=== PATIENT | female | born 1995 | race Caucasian/White ===

== ENCOUNTER → 2022-07-29 14:43 | Outpatient (CLI) | payer OTHER, SELFPAY | PROVIDERS: Visit Provider Nurse Practitioner Psychiatric/Mental Health | DX: Z34.90 Encounter for supervision of normal pregnancy, unspecified, unspecified trimester (principal) | CPT/HCPCS: 36415; 84702 ==

== ENCOUNTER → 2022-07-31 07:21 | Outpatient (CLI) | payer OTHER, SELFPAY ==
[2022-08-01 14:22] LABS: Progesterone 2.7 ng/mL (.)
== END ==
PROVIDERS: Visit Provider Obstetrics & Gynecology
DX: Z34.91 Encounter for supervision of normal pregnancy, unspecified, first trimester (principal)
CPT/HCPCS: 36415; 84144; 84702

== ENCOUNTER 2022-08-15 09:53 | Emergency (ER) | payer OTHER, SELFPAY ==
[2022-08-15] VITALS (16 sets, daily range): BP systolic 190–283; BP diastolic 95–182; PULSE 80–127; RESP 17–18; TEMP 36.8–37; O2SAT 96–100; BMI 58.8
--- NOTE | 2022-08-15 10:10 | PC.NURSE ---
DR CARIAS AT BEDSIDE
--- NOTE | 2022-08-15 10:17 | US_ITS ---
PROCEDURE: US OB TRANSVAGINAL CLINICAL INDICATION: hypertension, elevated HCG, no IUP COMPARISON: No exams were available for comparison FINDINGS: From her last menstrual period she is 11weeks 6days. An intrauterine gestational sac is present correlating to gestational age of 7weeks 4days. There is no fetus seen within gestational sac. The gestational sac seems somewhat collapsed. There is some fluid around the outside of the sac. The right ovary is seen and appears normal. It has a polycystic appearance with typical ring of pearls. The left ovary is seen and appears normal. This ovary also have a polycystic appearance with a typical ring of pearls. There is no fluid in the cul-de-sac. IMPRESSION: 1. Gestational sac measuring approximately 7 weeks 4 days. 2. There is no fetus seen within the gestational sac. 3. Likely a blighted ovum. 4. Both ovaries are seen and have a polycystic appearance. 5. There is no fluid in the cul-de-sac. Dictated by: Tao Saavedra MD 08/15/2022 12:02 Tao Saavedra MD in OV 08/15/2022 12:02
--- NOTE | 2022-08-15 10:19 | HMH.EDGENADL ---
Discharge Plan Disposition Patient Disposition: Home, Self-Care Condition: Good Prescriptions Prescriptions: New hydrochlorothiazide 25 mg tablet 25 mg PO DAILY Qty: 30 1RF No Action progesterone micronized [Prometrium] 200 mg capsule 200 mg PO HS Qty: 30 1RF Referrals Follow up/Referrals: Provider,Referral, [Primary Care Provider] - See instructions Clinical Impressions Clinical Impression: Hypertension Qualifiers: Hypertension type: unspecified Qualified Code(s): I10 - Essential (primary) hypertension Discharge ED Provider: Temo Metzger General Adult HPI General Chief complaint: Recheck/Abnormal Lab/Rx Stated complaint: hypertension Time Seen by Provider: 08/15/22 09:57 Mode of Arrival: Ambulatory Source of Information: Patient Limitations: No Limitations History of Present Illness HPI narrative: This is a 27-year-old female with history of hypertension, obesity, recent positive beta hCG presenting with hypertension. Patient states that she had a positive hCG a couple of weeks ago, first OB appointment was today, 08/15. Patient was seen in OB clinic. Ultrasound was negative for IUP, patient was found to be hypertensive 180-200 systolic, so sent to the ER for further evaluation. Patient denies chest pain, shortness of breath, abdominal pain, nausea, vomiting, dysuria, hematuria, fevers or chills, diaphoresis, vaginal bleeding, discharge, gushes of fluid. Last menstrual period was first week of May 2022. Related Data Previous Rx's Medication Instructions Recorded progesterone micronized 200 mg 200 mg PO HS #30 caps 08/05/22 capsule (Prometrium) hydrochlorothiazide 25 mg tablet 25 mg PO DAILY #30 tabs 08/15/22 Allergies Allergy/AdvReac Type Severity Reaction Status Date / Time No Known Allergies Allergy Unknown Uncoded 08/15/22 08:51 [facility] Disclaimer: The information contained in this section may have been updated after the patient was seen, as this information can be updated by other users. Medical History Hypertensive urgency, malignant No significant medical problems Positive blood test Severe obesity (BMI >= 40) Surgical History No significant past surgical history Family History Other Cancer Coronary artery disease Social History Smoking Status: Never smoker alcohol intake: never current occupational status: employed Travel in the last 8 weeks: None ROS Obtained: Yes All systems reviewed & no additional complaints except as documented Physical Exam General General appearance: alert, in no apparent distress and obese Head Head exam: atraumatic and normocephalic Respiratory Respiratory exam: Absent respiratory distress Cardiovascular Cardiovascular exam: Present normal rhythm and tachycardia Abdominal Exam Abdominal exam: Present soft Extremities Exam Extremities exam: Absent edema Neurological Exam Neurological exam: Present alert, oriented X3 and CN II-XII intact Psychiatric Psychiatric exam: Present anxious Medical Decision Making Medical Records Medical records reviewed: Yes I reviewed the patient's medical records. Avel Inquiry Pt receiving controlled substance: No Avel was queried for this patient: No Vital Signs: 08/15/22 09:54 08/15/22 10:08 08/15/22 10:10 Temperature 98.6 F Temperature Source Oral Pulse Rate 127 H 120 H Pulse Rate [Apical] 122 H Respiratory Rate 18 Blood Pressure 255/173 H 283/182 H Blood Pressure [Right Radial Artery] 190/100 H Blood Pressure Mean 195 203 Blood Pressure Mean [Right Radial Artery] 130 Blood Pressure Source Blood Pressure Source [Right Radial Artery] Manual Cuff/ Auscultation Blood Pressure Position Blood Pressure Position [Right Rad
--- NOTE | 2022-08-15 10:30 | PC.NURSE ---
PT TO RADIOLOGY
[2022-08-15 10:38] LABS: Basophils % 0.3 % (0.1-2.0); Eosinophils % 0.4 % (0.1-12.0); Hematocrit 39.8 % (37.0-47.0); Hemoglobin 13.1 g/dL (12.2-16.2); Lymphocytes # 1.6 K/mm3 (0.7-4.5); Lymphocytes % 17.5 % (10-50); Mean Corpuscular HGB Conc 32.9 g/dL (31.8-35.4); Mean Corpuscular Hemoglobin 26.2 pg (27.0-31.2); Mean Corpuscular Volume 79.7 fl (81-99); Monocytes # 0.4 K/mm3 (0.1-1.0); Monocytes % 4.1 % (1.7-9.3); Neutrophils # 6.9 K/mm3 (1.8-7.8); Neutrophils % 77.8 % (37.0-80.0); Platelet Count 260 K/mm3 (142-424); Red Blood Count 4.99 M/mm3 (4.20-5.40); Red Cell Distribution Width 14.9 % (11.5-17.5); White Blood Count 8.9 K/mm3 (4.8-10.8)
[2022-08-15 10:40] LABS: Chloride 103 mmol/L (98-107); Potassium 3.8 mmoL/L (3.5-5.1); Sodium 138 mmol/L (136-145)
[2022-08-15 10:42] LABS: Alanine Aminotransferase 31 U/L (12-78); Aspartate Amino Transferase 30 U/L (14-36); Blood Urea Nitrogen 6 mg/dl (7-17); Creatinine Clearance Estimated 134 mL/min (50-200); Estimated Glomerular Filt Rate 122 ml/min (>60); GFR (African American) 147 ML/MIN (>60)
[2022-08-15 10:43] LABS: Albumin Level 4.3 g/dl (3.5-5.0); Albumin/Globulin Ratio 1.2 (1.1-1.8); Alkaline Phosphatase 66 U/L (38-126); Anion Gap 13.8 mEq/L (5-15); Bilirubin,Total 0.5 mg/dl (0.2-1.3); Calcium 8.8 mg/dl (8.4-10.2); Carbon Dioxide 25 mmol/L (22.0-30.0); Globulin 3.6 g/dL (1.3-3.2); Glucose 97 mg/dl (74-100); Total Protein,Serum 7.9 g/dl (6.3-8.2)
--- NOTE | 2022-08-15 11:05 | PC.NURSE ---
PT ARRIVED BACK TO ROOM FROM ULTRASOUND
--- NOTE | 2022-08-15 11:53 | PC.NURSE ---
DR CARIAS SPEAKING WITH DR SUAREZ
--- NOTE | 2022-08-15 12:09 | PC.NURSE ---
COVID SWAB SENT TO LAB
[2022-08-15 12:10] LABS: Coronavirus 19, PCR Not Detected (NotDetected); Influenza A, PCR Not Detected (NotDetected); Influenza B, PCR Not Detected (NotDetected)
[2022-08-15 12:10] LABS: Microscopic, Urine URINE MICROSCOPIC (MICROSCOPIC)
--- NOTE | 2022-08-15 12:14 | PC.NURSE ---
CHECKED ON PT NOTHING NEEDED AT THIS TIME, AT BS
[2022-08-15 12:16] LABS: Appearance,Urine CLEAR (Clear); Bilirubin,Urine Negative (Negative); Blood, Urine 1+ (Negative); Color,Urine YELLOW (Yellow); Glucose,Urine (UA) Negative (Negative); Ketones,Urine 1+ (Negative); Leukocyte Esterase,Urine Negative (Negative); Nitrate,Urine Negative (Negative); Protein,Urine Negative (Negative); Urobilinogen,Urine 0.2 EU/dl (0.2)
--- NOTE | 2022-08-15 12:27 | PC.NURSE ---
DR CARIAS AT BEDSIDE TO UPDATE PT AND FAMILY ON POC
[2022-08-15 12:43] LABS: Creatinine,Urine Random 19 mg/dL (Not Estab.)
[2022-08-15 12:51] LABS: Bacteria,Urine Trace /lpf; RBC,Urine Occasional #/hpf (0-3); Squamous Epithelial Cell,Urine Occasional #/hpf (0-5)
== END 2022-08-15 13:15 | disposition home or self-care (01) ==
PROVIDERS: Emergency Provider Emergency Medicine
DX: I16.0 Hypertensive urgency (principal); I10 Essential (primary) hypertension; E66.01 Morbid (severe) obesity due to excess calories; Z68.41 Body mass index [BMI] 40.0-44.9, adult; Z32.01 Encounter for pregnancy test, result positive
CPT/HCPCS: 76817; 80053; 81001; 82570; 84155; 84702; 85025; 87635; 87636; 96365; 96374; 99284; C9803; J3475; U0003; U0005

== ENCOUNTER 2022-10-20 11:35 | Inpatient (IN) | payer OTHER, SELFPAY ==
[2022-10-20] VITALS (28 sets, daily range): BP systolic 133–282; BP diastolic 96–190; PULSE 85–114; RESP 16–20; TEMP 36.7–37; O2SAT 95–100; BMI 56.5; BMI 54.2
--- NOTE | 2022-10-20 11:45 | PC.NURSE ---
Notified ER MD Call of pt manual bp
--- NOTE | 2022-10-20 11:48 | ECG_ITS ---
APPROVED REPORT Exam: Resting ECG HR:99 bpm ECG Measurements Heart Rate 99 AXES WV 156 P 24 QRSd 107 QRS -6 QT 346 T 35 QTc 402 Conclusion SINUS RHYTHM POSSIBLE LEFT ATRIAL ENLARGEMENT [-0.1mV P-WAVE IN V1/V2] POSSIBLE LEFT VENTRICULAR HYPERTROPHY [VOLTAGE CRITERIA PLUS LAE OR QRS WIDENING] ABNORMAL ECG UNCONFIRMED REPORT Electronically signed by : Joseluis Leon MD 10/21/2022 17:21:53
--- NOTE | 2022-10-20 12:13 | PC.NURSE ---
Dr. Call at BS
--- NOTE | 2022-10-20 12:23 | XR_ITS ---
FINAL REPORT CLINICAL HISTORY: Shortness of breath COMPARISON: None FINDINGS: The heart size is normal. The mediastinum is normal. There is no focal infiltrate or edema. There are no pleural effusions. There is no pneumothorax. There is no osseous abnormality. IMPRESSION: No acute cardiopulmonary process Reviewed, Interpreted and Dictated by Barrett Mendez MD Transcribed by Edda Tucker Authenticated and [facility]
--- NOTE | 2022-10-20 12:25 | PC.NURSE ---
rounded on patient, no needs at this time. Mother at BS. Call mcfarland within reach
--- NOTE | 2022-10-20 12:26 | HMH.EDGENADL ---
Discharge Plan Disposition Patient Disposition: Admitted Chief Complaint: Weakness Prescriptions Prescriptions: No Action hydroxyzine HCl 25 mg tablet 25 mg PO TID PRN (Reason: anxiety) Qty: 30 0RF nifedipine 60 mg tablet extended release 60 mg PO DAILY Qty: 30 0RF duloxetine 60 mg capsule,delayed release(DR/EC) 60 mg PO DAILY Qty: 30 0RF amoxicillin 500 mg capsule 500 mg PO TID 7 Days Qty: 21 0RF azelastine 137 mcg (0.1 %) aerosol,spray 2 spray intranasal DAILY 90 Days Qty: 30 2RF Rx Instructions: administer into each nostril Referrals Follow up/Referrals: Modesto Louie DO [Primary Care Provider] - See instructions Modesto Bruce MD [Staff Physician] - See instructions (for outpatient echo and further management of your refractory hypertension ) Clinical Impressions Clinical Impression: Hypertensive emergency, Chest pain Discharge ED Provider: Franca Call General Adult HPI General Chief complaint: Weakness Stated complaint: hypertension Time Seen by Provider: 10/20/22 12:10 Mode of Arrival: Ambulatory Source of Information: Patient Limitations: No Limitations Description of Symptoms (Recalled from ER Triage Doc. by RN): Pt sent to ER for evaluation r/t elevated bp from Dr. Louie. States was started on bp medication at pcp office on thursday of last week, was in office today for f/u bp still elevated in office 260s/120s Pt denies headache, vision changes or dizziness. Pt does reports intermittent chest pains that last a few seconds at a time for 3-4 days. Pt reports was started on anxiety medication on thursday at pcp office also. History of Present Illness HPI narrative: Patient is a 27-year-old female here with hypertension. States that she has been diagnosed with hypertension for a very long time but was only recently initiated on antihypertensive medications. She does not recall what medication she is on but from her note she is on nifedipine 60 mg tablet extended release daily. She is not on other antihypertensive medications. She went for a follow-up to her primary care doctor states that she is only been having some intermittent chest pain over the last few days but no other symptoms. When they found she was significantly hypertensive this in her to the emergency department. She denies any headaches changes in mental status shortness of breath any chest pain is ongoing any changes in urine etc. No history of structural heart disease or any other medical problems that she is aware of. Related Data Previous Rx's Medication Instructions Recorded amoxicillin 500 mg capsule 500 mg PO TID 7 days #21 caps 10/16/22 azelastine 137 mcg (0.1 %) nasal 2 spray intranasal DAILY 90 days 10/16/22 spray aerosol #30 mL duloxetine 60 mg capsule,delayed 60 mg PO DAILY #30 caps 10/17/22 release hydroxyzine HCl 25 mg tablet 25 mg PO TID PRN anxiety #30 tabs 10/17/22 nifedipine 60 mg tablet,extended 60 mg PO DAILY #30 tabs 10/17/22 release Allergies Allergy/AdvReac Type Severity Reaction Status Date / Time No Known Allergies Allergy Unknown Uncoded 10/17/22 14:10 [facility] Disclaimer: The information contained in this section may have been updated after the patient was seen, as this information can be updated by other users. Medical History Acute bacterial sinusitis Hypertensive urgency, malignant No significant medical problems Positive blood test Severe obesity (BMI >= 40) Surgical History No significant past surgical history Family History Other Cancer Coronary artery disease Social History Smoking Status: Never smoker alcohol intake: never current occupational status: employed Travel in the last 8 weeks: No
[2022-10-20 12:34] LABS: Basophils # 0.1 K/mm3 (0-0.2); Basophils % 0.6 % (0.1-2.0); Eosinophils % 0.1 % (0.1-12.0); Hemoglobin 15.3 g/dL (12.2-16.2); Lymphocytes # 2.2 K/mm3 (0.7-4.5); Lymphocytes % 23.7 % (10-50); Mean Corpuscular HGB Conc 31.9 g/dL (31.8-35.4); Mean Corpuscular Hemoglobin 26.7 pg (27.0-31.2); Mean Corpuscular Volume 83.7 fl (81-99); Mean Platelet Volume 8.2 fl (7.4-10.4); Monocytes # 0.5 K/mm3 (0.1-1.0); Monocytes % 5.2 % (1.7-9.3); Neutrophils # 6.6 K/mm3 (1.8-7.8); Neutrophils % 70.4 % (37.0-80.0); Platelet Count 352 K/mm3 (142-424); Red Blood Count 5.73 M/mm3 (4.20-5.40); Red Cell Distribution Width 14.9 % (11.5-17.5); White Blood Count 9.4 K/mm3 (4.8-10.8)
[2022-10-20 12:35] LABS: Chloride 103 mmol/L (98-107)
[2022-10-20 12:36] LABS: Potassium 3.7 mmoL/L (3.5-5.1); Sodium 142 mmol/L (136-145)
[2022-10-20 12:38] LABS: Alanine Aminotransferase 35 U/L (12-78); Aspartate Amino Transferase 33 U/L (14-36); Blood Urea Nitrogen 18 mg/dl (7-17); Creatinine Clearance Estimated 101 mL/min (50-200); Estimated Glomerular Filt Rate 87 ml/min (>60); GFR (African American) 106 ML/MIN (>60)
[2022-10-20 12:39] LABS: Albumin Level 4.7 g/dl (3.5-5.0); Alkaline Phosphatase 88 U/L (38-126); Anion Gap 18.7 mEq/L (5-15); Bilirubin,Total 0.8 mg/dl (0.2-1.3); Calcium 10.2 mg/dl (8.4-10.2); Carbon Dioxide 24 mmol/L (22.0-30.0); Globulin 4.7 g/dL (1.3-3.2); Glucose 106 mg/dl (74-100); Total Protein,Serum 9.4 g/dl (6.3-8.2)
[2022-10-20 12:51] LABS: Troponin I < 0.01 ng/ml (0.00-0.034)
--- NOTE | 2022-10-20 13:44 | PC.NURSE ---
ERA Call speaking with Dr. Bruce
--- NOTE | 2022-10-20 13:48 | PC.NURSE ---
at bs when rounding on pt
[2022-10-20 13:52] LABS: Microscopic, Urine URINE MICROSCOPIC (MICROSCOPIC)
--- NOTE | 2022-10-20 13:53 | PC.NURSE ---
ERA SADLER speaking with Dr. Caldwell at this time
[2022-10-20 13:55] LABS: Appearance,Urine SL CLOUDY (Clear); Blood, Urine Negative (Negative); Color,Urine YELLOW (Yellow); Glucose,Urine (UA) Negative (Negative); Ketones,Urine 2+ (Negative); Leukocyte Esterase,Urine Negative (Negative); Nitrate,Urine Negative (Negative); Protein,Urine 2+ (Negative); Specific Gravity, Urine >= 1.030 (1.005-1.030); Urobilinogen,Urine 0.2 EU/dl (0.2)
--- NOTE | 2022-10-20 13:56 | CA_ITS ---
FINAL REPORT TECHNIQUE: Grayscale, color Doppler and duplex Doppler ultrasound of the kidneys, aorta and renal arteries was performed. Multiple velocities were measured. CLINICAL HISTORY: malignant hypertension,OBESITY COMPARISON: None FINDINGS: Aorta velocity: 147 cm/sec Right kidney: 12.8 cm. No evidence of hydronephrosis or mass. Right intrarenal RI: 0.51 - 0.62 Right renal artery velocity: 154 cm/sec. Right RAR (Renal artery-Aortic Ratio): 1.05 Left Kidney: 13.7 cm. 1.4 x 1.3 cm cyst midpole left kidney. No hydronephrosis. Left intrarenal RI: 0.54 - 0.68 Left renal artery velocity: 171 cm/sec. Left RAR (Renal Artery-Aortic Ratio): 1.17 IMPRESSION: No evidence of significant renal artery stenosis. CT angiogram or postcontrast MR angiogram would be more sensitive for evaluation of possible renal artery stenosis. Reviewed, Interpreted and Dictated by Barrett Mendez MD Transcribed by Edda Tucker Authenticated and [facility]
[2022-10-20 13:58] LABS: Bilirubin,Urine 2+ (Negative)
--- NOTE | 2022-10-20 13:58 | CA_ITS ---
APPROVED REPORT EXAM: Comprehensive 2D, Doppler, and color-flow Echocardiogram Book Mender: Dottie Bangura RVT Ht: 5 ft 6 in Wt: 350lbs BSA: 2.54 BP: 290/190 mmHg Indications: HTN, CHEST PAIN, FH EARLY CARD TDS-PT BODY HABITUS 2D Dimensions LVOT 2.05 cm (M/F) 1.5-2.5 LA Volume 48.50 mL LA Volume Index 19.09 mL/m2 (M/F) 16-34 M-Mode Dimensions RVDd 3.80 cm (0.9-2.6) LA Diam 4.04 cm (1.9-4.0) LVDd 5.19 cm (3.5-5.7) Ao Diam 3.27 cm (2.0-3.7) LVDs 3.62 cm (3.5-5.7) IVSd 1.92 cm (0.6-1.1) PWd 0.76 cm (0.6-1.1) EF (Teich) 57.20% FS 30.30% EDV (Teich) 128.90 mL TAPSE 2.86 (<1.7) ESV (Teich) 55.20 mL LV Diastology MED E' 4.50 (< 7 cm/sec) LAT E' 12.70 (<10 cm/sec) Aortic Valve AO Peak GR. 12.70 mmHg Pulmonary Valve PV Peak Velocity 68.00 (50-150 cm/s) Left Ventricle The left ventricle is normal size. The left ventricular systolic function is normal. The left ventricular ejection fraction is within the normal range. There is increased LV wall thickness (IVSd=1.7 cm). There is no evidence of LVOT obstruction at rest. LVOT gradients are not evaluated with Valsalva maneuver. Mild hypokinesis of the inferior and inferolateral LV rodriguez LVEF is 55%. Right Ventricle The right ventricle is normal size. The right ventricular systolic function is normal. Atria The left atrium size is normal. The right atrium size is normal. Aortic Valve The aortic valve opens well. There is no aortic valvular stenosis. No aortic regurgitation is present. Mitral Valve The mitral valve is normal in structure. No evidence of systolic anterior motion (JOSEPH). No evidence of mitral valve stenosis. There is no mitral valve regurgitation noted. Tricuspid Valve The tricuspid valve leaflets are thin and pliable. Trace tricuspid regurgitation. There is insufficient TR jet to estimate RVSP. Pulmonic Valve The pulmonary valve is normal in structure. Trace pulmonic regurgitation. Great Vessels The aortic root is normal in size. The ascending aorta is normal in size. IVC is normal in size and collapses >50% with inspiration. Pericardium There is a small posterior and apical pericardial effusion. The largest pocket measures approximaely 0.4 in largest dimension in diameter. Other Information Study Quality: Fair Conclusion Normal biventricular systolic function Increased LV wall thickness (IVSd 1.7 cm) Mild hypokinesis of the inferior and inferolateral LV rodriguez. No evidence of LVOT obstruction at rest. No significant valvular disease. No evidence of JOSEPH or septal contact. Small posterior and apical pericardial effusion. Thickened LV wall is suggestive of possible underlying HCM. Further work-up with cardiac MRI (HCM protocol) is recommended. Wall motion abnormalities are suggestive of possible coronary disease. Further work-up, namely stress testing, is also recommended. Electronically signed by : Betzaida Whitaker, 10/20/2022 17:11:19
--- NOTE | 2022-10-20 14:02 | PC.NURSE ---
call made to care management for bed placement.
--- NOTE | 2022-10-20 14:05 | HMH.PHAINT1 ---
Pharmacy Intervention Comments: MEDICATION RECONCILIATION COMPLETED ON PATIENT USING EXTERNAL FILL HISTORY FROM PHARMACY. -HOLLIE JOSHI, DANGD
[2022-10-20 14:11] LABS: Bacteria,Urine Trace /lpf; Mucus,Urine Trace /lpf
[2022-10-20 14:49] LABS: HCG,Quantitative < 2 mIU/ml (0-5.42)
--- NOTE | 2022-10-20 15:02 | EXP.CARD.CON ---
History of Present Illness History of Present Illness Consult date: 10/20/22 Consult reason: hypertension Chief complaint: Elevated BP, chest pain Additional Medical History:: 1. HTN 2. Obesity with BMI 56 3. FH of aneurysm History of present illness: 27-year-old white female recently diagnosed with hypertension and started on nifedipine 4 days ago. Follow-up with PCP today with notation of significant elevated blood pressure and was subsequently sent to the ER for further evaluation. Patient does relate some chest discomfort over the last several days along with some headaches in the past as well. Due to the malignancy of the hypertension with blood pressures in the 250/150 range it was discussed that the patient should stay for more aggressive treatment. She is agreeable to do so. She has been started on IV nifedipine with plans for lisinopril per ER MD. She is a non-smoker She is nondiabetic She relates recent miscarriage 2 months ago at which time blood pressure noted to be markedly elevated and was referred to the ER for evaluation and treatment. At the time of our visit in the ER patient was having an echocardiogram performed which shows preserved ejection fraction without significant LVH. EKG is sinus with no acute ST segment changes. Poor R wave progression anteriorly with possible LVH noted Initial troponin is normal. Plans for slow progressive treatment of her hypertension discussed with the patient and her mother who agreed to stay overnight for initiation of therapy. Patient was seen with Dr. Huston in the ER. [facility] Disclaimer: The information contained in this section may have been updated after the patient was seen, as this information can be updated by other users. Medical History Acute bacterial sinusitis Hypertensive urgency, malignant No significant medical problems Positive blood test Severe obesity (BMI >= 40) Surgical History No significant past surgical history Family History Other Cancer Coronary artery disease Social History Smoking Status: Never smoker alcohol intake: never current occupational status: employed Travel in the last 8 weeks: None Review of Systems Constitutional Constitutional: Reports fatigue and Reports lethargy Eyes Eyes: Denies diplopia *Cardiovascular Cardiovascular: Reports chest pain and Reports dyspnea on exertion *Respiratory Respiratory: Reports dyspnea on exertion and Denies wheezing *Gastrointestinal Gastrointestinal: Denies loose stools and Denies vomiting Endocrine Endocrine: Reports fatigue Allergic/Immunologic Allergic/Immunologic: Denies wheezing Exam Data for Last 24 hours Vital signs and Labs for Last 24 Hours: Temp Pulse Resp BP Pulse Ox O2 Del Method 98.6 F 101 H 18 282/190 H 98 Room Air 10/20/22 11:36 10/20/22 13:31 10/20/22 11:36 10/20/22 13:31 10/20/22 13:31 10/20/22 13:01 Laboratory Results - last 24 hr 10/20/22 11:46: WBC 9.4, RBC 5.73 H, Hgb 15.3, Hct 48.0 H, MCV 83.7, MCH 26.7 L, MCHC 31.9, RDW 14.9, Plt Count 352, MPV 8.2, Neut % (Auto) 70.4, Lymph % (Auto) 23.7, [place] % (Auto) 5.2, Eos % (Auto) 0.1, Baso % (Auto) 0.6, Neut # (Auto) 6.6, Lymph # (Auto) 2.2, [place] # (Auto) 0.5, Eos # (Auto) 0.0, Baso # (Auto) 0.1, Sodium 142, Potassium 3.7, Chloride 103, Carbon Dioxide 24, Anion Gap 18.7 H, BUN 18 H, Creatinine 0.80, Estimated Creat Clear 101, Estimated GFR 87, Est GFR ( Amer) 106, Glucose 106 H, Calcium 10.2, Total Bilirubin 0.8, AST 33, ALT 35, Alkaline Phosphatase 88, Troponin I < 0.01, Total Protein 9.4 H, Albumin 4.7, Globulin 4.7 H, Albumin/Globulin Ratio 1.0 L, HCG, Quant < 2 10/20/22 13:46: Urine Color Yellow, Urine Appearance Sl cloudy, Urine pH 6.0, Ur Specific [place] >
--- NOTE | 2022-10-20 15:18 | CT_ITS ---
FINAL REPORT TECHNIQUE: Postcontrast axial images of the chest were performed in a CTA protocol. This study was performed with techniques to keep radiation doses as low as reasonably achievable, (ALARA). Individualized dose reduction technique using automated exposure control or adjustment of mA and/or kV according to the patient's size were employed. CLINICAL HISTORY: chest pain, HTN emergency FINDINGS: A small amount of soft tissue seen anterior mediastinum likely related to residual thymic tissue. The heart is normal in size. No adenopathy is identified. No pleural or pericardial effusion is identified. The thoracic aorta is normal in caliber with no focal aneurysm or dissection identified. There is no filling defect to suggest pulmonary embolism. No lung infiltrate or mass is identified. A calcified granuloma is noted at the medial left lung base measuring 1 cm. The images of the upper abdomen are unremarkable. IMPRESSION: No evidence for PE on this exam. Reviewed, Interpreted and Dictated by Barrett Mendez MD Transcribed by Odalis Rollins Authenticated and [facility]
[2022-10-20 15:27] LABS: Thyroid Stimulating Hormone 1.14 uIU/mL (0.465-4.68)
--- NOTE | 2022-10-20 15:27 | PC.NURSE ---
nicardipine drip increased to 75ml/hr at this time
[2022-10-20 15:39] LABS: Troponin I 0.01 ng/ml (0.00-0.034)
--- NOTE | 2022-10-20 15:49 | PC.NURSE ---
pt resting in bed nothing needed at this time, mom at bs
--- NOTE | 2022-10-20 16:07 | PC.NURSE ---
arrived by stretcher from ED
--- NOTE | 2022-10-20 18:21 | PC.NURSE ---
Addendum entered by Yaneth Tao RN 10/20/22 19:08: 1905 drip titrated to 7.5mcg at this time Original Note: Pt arrived on unit with Cardene drip infusing at 75ml/hr 5 drip decreased to 50ml/hr (5mcg) r/t bp 147/109
[2022-10-20 19:22] LABS: Troponin I 0.03 ng/ml (0.00-0.034)
--- NOTE | 2022-10-20 20:22 | EXP.HP ---
History of Present Illness *Admission Date: 10/20/22 *Reason for visit:: Chest pressure, severe HTN *History of present illness: Ms. Ansari is a 27-year-old female who was sent to the ER at the request of her PCP for elevated blood pressure. She was following up with him in his office today for hypertension. Was started on nifedipine on Thursday. Blood pressure in the office was 260s over 120s. She complains of some mild headache, chest tightness. Denies vision changes or dizziness. No nausea or vomiting or shortness of breath. States she has had high blood pressure for a long time. Chart review shows that she has had similar blood pressures over the past 3 to 4 months. She was also started on anxiety medicine on Thursday with duloxetine. Says she felt like a zombie on Thursday and so she stopped taking it. On evaluation in the ER, she was found to be severely hypertensive with blood pressures consistently 260/140. Exam concerning for morbid obesity but no other acute findings. Labs reviewed and essentially nonactionable with no endorgan damage. She was started on nicardipine drip and cardiology was consulted. Medicine consulted for admission. On arrival to the floor, patient's blood pressure is improving with systolics 160-180. She is stable on room air. Tearful on interview due to recent miscarriage 2 months ago. Denies any thoughts of self-harm or hurting others. [facility] Disclaimer: The information contained in this section may have been updated after the patient was seen, as this information can be updated by other users. Medical History Acute bacterial sinusitis Hypertensive urgency, malignant No significant medical problems Positive blood test Severe obesity (BMI >= 40) Surgical History No significant past surgical history Family History Coronary artery disease Cancer Social History Smoking Status: Never smoker alcohol intake: never current occupational status: employed Travel in the last 8 weeks: None Review of Systems Review of Systems Review of systems (narrative): 14 point review of systems performed, pertinent positives and negatives as per HPI Meds Home Medications and Allergies Home Medications Medication Instructions Recorded Confirmed Type amoxicillin 500 mg capsule 500 mg PO TID Infection 10/20/22 10/20/22 History azelastine 137 mcg (0.1 %) nasal 2 spray intranasal DAILY PRN 10/20/22 10/20/22 History spray aerosol Allergy Symptoms duloxetine 60 mg capsule,delayed 60 mg PO DAILY Infection 10/20/22 10/20/22 History release hydroxyzine HCl 25 mg tablet 25 mg PO TIDP PRN anxiety 10/20/22 10/20/22 History nifedipine 60 mg tablet,extended 60 mg PO DAILY High Blood Pressure 10/20/22 10/20/22 History release New Prescriptions to Start Prescriptions: Allergies Allergy/AdvReac Type Severity Reaction Status Date / Time No Known Allergies Allergy Unverified 10/20/22 14:07 Exam Data for Last 24 hours Vital signs and Labs for Last 24 Hours: Temp Pulse Resp BP Pulse Ox O2 Del Method 98.1 F 106 H 16 153/106 H 96 Room Air 10/20/22 20:00 10/20/22 20:00 10/20/22 20:00 10/20/22 20:00 10/20/22 20:00 10/20/22 20:00 Laboratory Results - last 24 hr 10/20/22 11:46: WBC 9.4, RBC 5.73 H, Hgb 15.3, Hct 48.0 H, MCV 83.7, MCH 26.7 L, MCHC 31.9, RDW 14.9, Plt Count 352, MPV 8.2, Neut % (Auto) 70.4, Lymph % (Auto) 23.7, [place] % (Auto) 5.2, Eos % (Auto) 0.1, Baso % (Auto) 0.6, Neut # (Auto) 6.6, Lymph # (Auto) 2.2, [place] # (Auto) 0.5, Eos # (Auto) 0.0, Baso # (Auto) 0.1, Sodium 142, Potassium 3.7, Chloride 103, Carbon Dioxide 24, Anion Gap 18.7 H, BUN 18 H, Creatinine 0.80, Estimated Creat Clear 101, Estimated GFR 87, Est GFR ( Amer) 106, Glucose 106 H, [place]
--- NOTE | 2022-10-20 22:15 | PC.NURSE ---
2100 BP 190/119 [address] titrated up to 10mg/hr at this time. 2133 BP 167/105
--- NOTE | 2022-10-20 23:06 | PC.NURSE ---
Cadene titrated down to 7.5mg/hr at this time.
[2022-10-21] VITALS (42 sets, daily range): BP systolic 126–193; BP diastolic 77–127; PULSE 77–106; RESP 15–20; TEMP 36.6–37.2; O2SAT 95–100
--- NOTE | 2022-10-21 00:33 | PC.NURSE ---
cardene drip down to 5mg/hr at this time.
--- NOTE | 2022-10-21 03:35 | PC.NURSE ---
cardene titrated down to 2.5mg/hr at this time.
[2022-10-21 06:14] LABS: Chloride 105 mmol/L (98-107)
[2022-10-21 06:15] LABS: Potassium 3.6 mmoL/L (3.5-5.1); Sodium 141 mmol/L (136-145)
[2022-10-21 06:17] LABS: Alanine Aminotransferase 30 U/L (12-78); Albumin Level 4.2 g/dl (3.5-5.0); Albumin/Globulin Ratio 1.1 (1.1-1.8); Alkaline Phosphatase 66 U/L (38-126); Anion Gap 13.6 mEq/L (5-15); Aspartate Amino Transferase 25 U/L (14-36); Bilirubin,Total 0.8 mg/dl (0.2-1.3); Blood Urea Nitrogen 13 mg/dl (7-17); Calcium 9.5 mg/dl (8.4-10.2); Carbon Dioxide 26 mmol/L (22.0-30.0); Creatinine Clearance Estimated 291 mL/min (50-200); Estimated Glomerular Filt Rate 102 ml/min (>60); GFR (African American) 123 ML/MIN (>60); Globulin 3.7 g/dL (1.3-3.2); Glucose 97 mg/dl (74-100); Total Protein,Serum 7.9 g/dl (6.3-8.2)
[2022-10-21 06:18] LABS: Magnesium 1.9 mg/dl (1.6-2.3)
[2022-10-21 06:32] LABS: Basophils # 0.1 K/mm3 (0-0.2); Basophils % 0.7 % (0.1-2.0); Eosinophils % 0.1 % (0.1-12.0); Hematocrit 43.7 % (37.0-47.0); Hemoglobin 13.9 g/dL (12.2-16.2); Lymphocytes # 2.4 K/mm3 (0.7-4.5); Lymphocytes % 27.3 % (10-50); Mean Corpuscular HGB Conc 31.8 g/dL (31.8-35.4); Mean Corpuscular Hemoglobin 26.8 pg (27.0-31.2); Mean Corpuscular Volume 84.3 fl (81-99); Mean Platelet Volume 8.1 fl (7.4-10.4); Monocytes # 0.6 K/mm3 (0.1-1.0); Monocytes % 6.4 % (1.7-9.3); Neutrophils # 5.7 K/mm3 (1.8-7.8); Neutrophils % 65.4 % (37.0-80.0); Platelet Count 336 K/mm3 (142-424); Red Blood Count 5.18 M/mm3 (4.20-5.40); White Blood Count 8.6 K/mm3 (4.8-10.8)
--- NOTE | 2022-10-21 08:35 | EXP.CARD.PN ---
Subjective Subjective Date: 10/21/22 Time: 08:35 Principal diagnosis: HTN emergency Interval history: 27-year-old white female in bed in no acute distress. Slight headache this morning. Blood pressure improved significantly overnight on IV nifedipine along with oral lisinopril and HCTZ. We will continue to adjust oral medicines to try to discontinue IV nifedipine. Echocardiogram shows preserved EF but with some slight inferior and inferolateral hypokinesis with concern for hypertrophic cardiomyopathy. Patient will need cardiac MRI as an outpatient in the future. CT of the chest negative for PE and aortic dissection. Renal duplex showed no evidence of renal artery stenosis. TSH normal hCG less than 2 Exam Data for Last 24 hours Vital signs and Labs for Last 24 Hours: Temp Pulse Resp BP Pulse Ox O2 Del Method 98.3 F 89 15 164/102 H 99 Room Air 10/21/22 07:27 10/21/22 06:00 10/21/22 06:00 10/21/22 06:00 10/21/22 06:00 10/21/22 06:22 Laboratory Results - last 24 hr 10/20/22 11:46: WBC 9.4, RBC 5.73 H, Hgb 15.3, Hct 48.0 H, MCV 83.7, MCH 26.7 L, MCHC 31.9, RDW 14.9, Plt Count 352, MPV 8.2, Neut % (Auto) 70.4, Lymph % (Auto) 23.7, [place] % (Auto) 5.2, Eos % (Auto) 0.1, Baso % (Auto) 0.6, Neut # (Auto) 6.6, Lymph # (Auto) 2.2, [place] # (Auto) 0.5, Eos # (Auto) 0.0, Baso # (Auto) 0.1, Sodium 142, Potassium 3.7, Chloride 103, Carbon Dioxide 24, Anion Gap 18.7 H, BUN 18 H, Creatinine 0.80, Estimated Creat Clear 101, Estimated GFR 87, Est GFR ( Amer) 106, Glucose 106 H, Calcium 10.2, Total Bilirubin 0.8, AST 33, ALT 35, Alkaline Phosphatase 88, Troponin I < 0.01, Total Protein 9.4 H, Albumin 4.7, Globulin 4.7 H, Albumin/Globulin Ratio 1.0 L, TSH 1.14, HCG, Quant < 2 10/20/22 13:46: Urine Color Yellow, Urine Appearance Sl cloudy, Urine pH 6.0, Ur Specific [place] >= 1.030, Urine Protein 2+, Urine Glucose (UA) Negative, Urine Ketones 2+, Urine Blood Negative, Urine Nitrate Negative, Urine Bilirubin 2+ A, Urine Urobilinogen 0.2, Ur Leukocyte Esterase Negative, Urine RBC None, Urine WBC 3-5, Ur Squamous Epith Cells 10-20, Urine Bacteria Trace, Urine Mucus Trace 10/20/22 14:58: Troponin I 0.01 10/20/22 18:44: Troponin I 0.03 10/21/22 05:35: WBC 8.6, RBC 5.18, Hgb 13.9, Hct 43.7, MCV 84.3, MCH 26.8 L, MCHC 31.8, RDW 15.0, Plt Count 336, MPV 8.1, Neut % (Auto) 65.4, Lymph % (Auto) 27.3, [place] % (Auto) 6.4, Eos % (Auto) 0.1, Baso % (Auto) 0.7, Neut # (Auto) 5.7, Lymph # (Auto) 2.4, [place] # (Auto) 0.6, Eos # (Auto) 0.0, Baso # (Auto) 0.1, Sodium 141, Potassium 3.6, Chloride 105, Carbon Dioxide 26, Anion Gap 13.6, BUN 13 D, Creatinine 0.70, Estimated Creat Clear 291, Estimated GFR 102, Est GFR ( Amer) 123, Glucose 97, Calcium 9.5, Magnesium 1.9, Total Bilirubin 0.8, AST 25, ALT 30, Alkaline Phosphatase 66, Total Protein 7.9, Albumin 4.2 D, Globulin 3.7 H, Albumin/Globulin Ratio 1.1 I & O for Last 24 hours: Intake & Output 10/18/22 10/19/22 10/20/22 10/21/22 11:59 11:59 11:59 11:59 Intake Total 1070 / 1070 Output Total 0 / 0 Balance 1070 / 1070 Weight 350 lb 331 lb 3.2 oz Constitutional Constitutional: no acute distress *Routine Respiratory Exam Respiratory: Present CTA bilaterally *Routine Cardiovascular Exam Cardiovascular: Present RRR *Routine Extremities Exam Extremities: Absent edema *Routine Neurological Exam Neurological: Present alert, oriented X3 and CN II-XII intact Progress Note: A&P Assessment and plan (1) Hypertensive urgency, malignant: Status: Acute (2) Chest pain: Status: Acute (3) Severe obesity (BMI >= 40): Status: Acute Assessment and Plan Assessment and Plan for All Diagnoses:: 1. HTN emergency with proteinuria and chest pain, improved. -continue IV nifedipine but weaning in process -continue lisinopril and HCTZ -add amlodipine 2.5 mg daily and hydralazine 25 mg TID -24 hr urine for VMA, Metanephrines and catecholamines pending -renin, aldosterone pending 2. Obesit
--- NOTE | 2022-10-21 16:38 | PC.NURSE ---
Addendum entered by Yaneth Tao RN 10/21/22 18:58: 1730 drip decreased to 50ml r/t bp 149/100 1830 drip decreased to 25ml r/t bp 145/90 Original Note: at start of shift pt Cardene drip infusing at 25ml/hr 0727 drip increased to 50ml/hr r/t bp 170/114 1044 drip increased to 75ml/hr r/t bp 176/103
--- NOTE | 2022-10-21 17:25 | P.PN_ITS ---
Subjective *Date: 10/21/22 *Time: 17:30 Interval history: No acute events overnight. She has a mild headache. She denies chest pain or shortness of breath. Exam Data for Last 24 hours Vital signs and Labs for Last 24 Hours: Temp Pulse Resp BP Pulse Ox O2 Del Method 98.3 F 91 H 20 159/105 H 96 Room Air 10/21/22 11:06 10/21/22 16:30 10/21/22 16:30 10/21/22 16:30 10/21/22 16:30 10/21/22 17:00 Laboratory Results - last 24 hr 10/20/22 18:44: Troponin I 0.03 10/21/22 05:35: WBC 8.6, RBC 5.18, Hgb 13.9, Hct 43.7, MCV 84.3, MCH 26.8 L, MCHC 31.8, RDW 15.0, Plt Count 336, MPV 8.1, Neut % (Auto) 65.4, Lymph % (Auto) 27.3, [place] % (Auto) 6.4, Eos % (Auto) 0.1, Baso % (Auto) 0.7, Neut # (Auto) 5.7, Lymph # (Auto) 2.4, [place] # (Auto) 0.6, Eos # (Auto) 0.0, Baso # (Auto) 0.1, Sodium 141, Potassium 3.6, Chloride 105, Carbon Dioxide 26, Anion Gap 13.6, BUN 13 D, Creatinine 0.70, Estimated Creat Clear 291, Estimated GFR 102, Est GFR ( Amer) 123, Glucose 97, Calcium 9.5, Magnesium 1.9, Total Bilirubin 0.8, AST 25, ALT 30, Alkaline Phosphatase 66, Total Protein 7.9, Albumin 4.2 D, Globulin 3.7 H, Albumin/Globulin Ratio 1.1 I & O for Last 24 hours: Intake & Output 10/18/22 10/19/22 10/20/22 10/21/22 23:59 23:59 23:59 23:59 Intake Total 710 / 710 540 / 540 Output Total 0 / 0 300 / 300 Balance 710 / 710 240 / 240 Weight 152.5 kg 150.23 kg Constitutional Constitutional: no acute distress *Routine HEENT Exam Head: Present normocephalic Eye: Present EOMI and PERRL ENT: Present mucous membranes moist *Routine Neck Exam Neck: Present supple; Absent lymphadenopathy *Routine Respiratory Exam Respiratory: Present CTA bilaterally *Routine Cardiovascular Exam Cardiovascular: Present RRR *Routine Abdominal Exam Abdominal: Present soft and normoactive bowel sounds; Absent tenderness *Routine Extremities Exam Extremities: Absent cyanosis, clubbing or edema *Routine Skin Exam Skin: Present warm; Absent rash *Routine Neurological Exam Neurological: Present alert and oriented X3 Assessment and Plan *Assessment and plan (1) Hypertensive urgency, malignant: Status: Acute Category: Medical Code(s): I16.0 - Hypertensive urgency (2) Chest pain: Status: Acute Qualifiers: Chest pain type: unspecified Qualified Code(s): R07.9 - Chest pain, unspecified Category: Medical Code(s): R07.9 - Chest pain, unspecified (3) Severe obesity (BMI >= 40): Status: Acute Category: Medical Code(s): E66.01 - Morbid (severe) obesity due to excess calories Plan #hypertensive urgency #morbid obesity I really appreciate Cardiology's care for the patient. Continuing lisinopril and hctz. Amlodipine and hydralazine were added by Cardiol markus earlier this morning. Continuing nicardipine drip, wean as tolerated Multiple studies pending including renin/aldosterone levels and 24 hour urine studies for vma, metanephrines and catecholamines. Full code Regular diet
--- NOTE | 2022-10-21 19:28 | PC.NURSE ---
notified by pt that they would like to have their care transferred to a different MD while an inpatient. pt would like Dr Leon to assume care of pt. called and spoke with Dr Leon at approx 1730. MD states that he will discuss pt POC with her and the care management team in the am. pt is agreeable to this. logging supervisor TJ notified as well.
[2022-10-22] VITALS (22 sets, daily range): BP systolic 120–169; BP diastolic 75–116; PULSE 79–100; RESP 15–20; TEMP 36.7–37; O2SAT 91–99; BMI 55.7
--- NOTE | 2022-10-22 00:09 | PC.NURSE ---
10/21/22: @ 1900, THE START OF THIS RN'S SHIFT, CARDENE GTT TITRATING AT 2.5MG/HR, 25ML/HR @ 2210 THIS RN TITRATED CARDENE GTT FROM 2.5MG/HR TO 5MG/HR, 50ML/HR
--- NOTE | 2022-10-22 02:44 | PC.NURSE ---
@ 0115 THIS RN TITRATED CARDENE GTT 5MG/HR, 50ML/HR DOWN TO 2.5MG/HR, 25ML/HR
--- NOTE | 2022-10-22 03:37 | PC.NURSE ---
@ 7336 THIS RN TITRATED THIS PT'S CARDENE GTT FROM 2.5MG/HR TO 5MG/HR, 50ML/HR
--- NOTE | 2022-10-22 03:53 | PC.NURSE ---
@ THIS TIME THIS RN WAS APPROACHED BY THIS PT'S FAMILY MEMBER THAT IS AT BEDSIDE REGARDING THE CARDENE GTT RATE OF 5MG/HR. THIS RN EXPLAINED TO THE FAMILY MEMBER THAT THE PT'S BP HAS NOT BEEN TOLERATING THE CARDENE GTT INFUSING AT 2.5MG/HR AND PER MD ORDER ON APR, CARDENE GTT IS TO TITRATED FOR A SBP < 150; PT IS CURRENTLY 160/108.
--- NOTE | 2022-10-22 06:28 | PC.NURSE ---
AT THIS TIME THIS RN TITRATED CARDENE GTT FROM 5MG/HR TO 10MG/HR TO SEE HOW PT RESPONDS TO THAT DOSAGE. THIS RN ASKED PT IF SHE WAS IN PAIN OR HAVING ANY ANXIETY TO CAUSE HER BP TO RISE HIGH IT IS. PT DECLINED, BUT DID SAY SHE FEELS LIKE HER WHOLE BODY IS ON FIRE AND SHE IS JUST HOT. THIS RN WILL SEE IF INCREASING CARDENE GTT WILL HELP RELIEVE THAT FEELING, IF PROCESS PROJECT ENGINEER/MD WILL BE NOTIFIED.
--- NOTE | 2022-10-22 08:39 | EXP.PN ---
Subjective *Date: 10/22/22 *Time: 08:39 Exam Data for Last 24 hours Vital signs and Labs for Last 24 Hours: Temp Pulse Resp BP Pulse Ox O2 Del Method 98.1 F 88 18 153/101 H 96 Room Air 10/22/22 08:00 10/22/22 08:00 10/22/22 08:00 10/22/22 08:00 10/22/22 08:00 10/22/22 08:00 I & O for Last 24 hours: Intake & Output 10/19/22 10/20/22 10/21/22 10/22/22 23:59 23:59 23:59 23:59 Intake Total 710 / 710 2 / 8 1116 / 1116 Output Total 0 / 0 700 / 700 300 / 300 Balance 710 / 710 1421 / 1997 816 / 816 Weight 152.5 kg 150.23 kg 151.908 kg
--- NOTE | 2022-10-22 09:00 | PC.NURSE ---
manual bp on left arm 170/100
--- NOTE | 2022-10-22 09:08 | EXP.CARD.PN ---
Subjective Subjective Date: 10/22/22 Time: 09:08 Principal diagnosis: HTN emergency Interval history: 27-year-old white female in bed in no acute distress. Headache has resolved. Blood pressure overnight in the 150-160/90-100 mmHg range. She is still on IV nifedipine. Exam Data for Last 24 hours Vital signs and Labs for Last 24 Hours: Temp Pulse Resp BP Pulse Ox O2 Del Method 98.1 F 88 18 153/101 H 96 Room Air 10/22/22 08:00 10/22/22 08:00 10/22/22 08:00 10/22/22 08:00 10/22/22 08:00 10/22/22 08:00 I & O for Last 24 hours: Intake & Output 10/19/22 10/20/22 10/21/22 10/22/22 11:59 11:59 11:59 11:59 Intake Total 1070 / 1070 2878 / 2878 Output Total 0 / 0 1000 / 1000 Balance 1070 / 1070 1878 / 1878 Weight 350 lb 331 lb 3.2 oz 334 lb 14.4 oz Constitutional Constitutional: no acute distress *Routine Respiratory Exam Respiratory: Present CTA bilaterally *Routine Cardiovascular Exam Cardiovascular: Present RRR; Absent murmur, gallop or rubs *Routine Extremities Exam Extremities: Absent edema *Routine Neurological Exam Neurological: Present alert, oriented X3 and CN II-XII intact Progress Note: A&P Assessment and plan (1) Hypertensive urgency, malignant: Status: Acute (2) Chest pain: Status: Acute (3) Severe obesity (BMI >= 40): Status: Acute Assessment and Plan Assessment and Plan for All Diagnoses:: 1. HTN emergency with proteinuria and chest pain, improved. -discontinue IV nifedipine -continue lisinopril and HCTZ -amlodipine 2.5 mg daily and hydralazine 50 mg TID -24 hr urine for VMA, Metanephrines and catecholamines pending -renin, aldosterone pending 2. Obesity -BMI >50 Clinically stable for discharge later today. Home meds: Amlodipine 2.5 mg daily Hydralazine 50 mg 3 times daily Lisinopril 10 mg twice daily Hydrochlorothiazide 25 mg daily Follow-up in 1 week.
--- NOTE | 2022-10-22 11:37 | PC.NURSE ---
CARA Martin with cardiology stated goal is for pt's bp to be around 160's, held cardene drip at this time, bp 165/100 (121)
--- NOTE | 2022-10-22 15:07 | EXP.DC.SUM ---
General Admission date:: 10/20/22 Discharge date: 10/22/22 HPI HPI HPI: Forwarded from admission H&P: Ms. Ansari is a 27-year-old female who was sent to the ER at the request of her PCP for elevated blood pressure. She was following up with him in his office today for hypertension. Was started on nifedipine on Thursday. Blood pressure in the office was 260s over 120s. She complains of some mild headache, chest tightness. Denies vision changes or dizziness. No nausea or vomiting or shortness of breath. States she has had high blood pressure for a long time. Chart review shows that she has had similar blood pressures over the past 3 to 4 months. She was also started on anxiety medicine on Thursday with duloxetine. Says she felt like a zombie on Thursday and so she stopped taking it. On evaluation in the ER, she was found to be severely hypertensive with blood pressures consistently 260/140. Exam concerning for morbid obesity but no other acute findings. Labs reviewed and essentially nonactionable with no endorgan damage. She was started on nicardipine drip and cardiology was consulted. Medicine consulted for admission. On arrival to the floor, patient's blood pressure is improving with systolics 160-180. She is stable on room air. Tearful on interview due to recent miscarriage 2 months ago. Denies any thoughts of self-harm or hurting others. Hospital Course Hospital Course Hospital Course: Cardiology started the patient on hctz, amlodipine and hydralazine. The patient was weaned off a nicardipine drip by the morning of the discharge date. On the day of discharge her systolic blood pressures were near 160. She didn't have any chest pain or shortness of breath throughout her hospital stay. Echocardiogram was obtained and revealed a thickened LV wall suggestive of possible underlying HCM. Further workup with cardiac MRI is recommended. Wall motion abnormalities are suggestive of possible coronary disease; further workup, namely stress testing, is also recommended. CT chest pe protocol ruled out PE and renal artery duplex did not reveal any renal artery stenosis. 24 hour urine collection for VMA, metanephrines and catecholamines was sent but results are pending. renin/aldosterone levels are pending. The patient will discharge home and follow up with Cardiology in 1 week and her PCP in 2 weeks. Exam Data for Last 24 hours Vital signs and Labs for Last 24 Hours: Temp Pulse Resp BP Pulse Ox O2 Del Method 98.1 F 89 18 169/116 H 94 L Room Air 10/22/22 08:00 10/22/22 14:00 10/22/22 14:00 10/22/22 14:00 10/22/22 14:00 10/22/22 14:00 I & O for Last 24 hours: Intake & Output 10/19/22 10/20/22 10/21/22 10/22/22 23:59 23:59 23:59 23:59 Intake Total 710 / 710 2122 / 2698 1656 / 1656 Output Total 0 / 0 700 / 700 600 / 600 Balance 710 / 710 142 / 1997 1056 / 1056 Weight 152.5 kg 150.23 kg 151.908 kg Constitutional Constitutional: no acute distress *Routine HEENT Exam Head: Present normocephalic Eye: Present EOMI and PERRL ENT: Present mucous membranes moist *Routine Neck Exam Neck: Present supple; Absent lymphadenopathy *Routine Respiratory Exam Respiratory: Present CTA bilaterally *Routine Cardiovascular Exam Cardiovascular: Present RRR *Routine Abdominal Exam Abdominal: Present soft and normoactive bowel sounds; Absent tenderness *Routine Extremities Exam Extremities: Absent cyanosis, clubbing or edema *Routine Skin Exam Skin: Present warm; Absent rash *Routine Neurological Exam Neurological: Present alert and oriented X3 Results Data Completed and Pending Completed studies during hospitalization [Text1]: Chest CTA 10/20/22: No evidence for PE on this exam. Echocardiogram 10/20/22: Normal biventricular systolic function Increased LV wall thickness (IVSd 1.7 cm) Mild hypokinesis of the inferior and inferolateral LV rodriguez. No evidence of LVOT obstruction at rest. No significant valvular disease. No danelle
--- NOTE | 2022-10-22 15:14 | PC.NURSE ---
removing bilateral IV's
[2022-10-22 15:59] LABS: Angiotensin Converting Enzyme <15 U/L (14-82)
--- NOTE | 2022-10-23 13:37 | CARE MANAGER ---
Spoke with patient related to hospital discharge. She has all her medications and is aware of her follow up appointments. Denies questions or concerns. ABBI Hidalgo
[2022-10-29 22:20] LABS: Renin Activity, Plasma 11.868 ng/mL/hr (0.167-5.380)
[2022-10-31 02:09] LABS: Dopamine, Ur, 24hr 555 ug/24 hr (0-510); Dopamine, Urine 370 ug/L (Undefined); Epinephrine, U, 24hr 15 ug/24 hr (0-20); Epinephrine, Urine 10 ug/L (Undefined); Norepinephrine, Ur 135 ug/L (Undefined); Norepinephrine,U,24h 203 ug/24 hr (0-135); VMA, Urine 4.5 mg/L (Undefined); VMA, Urine, 24hr 6.8 mg/24 hr (0.0-7.5)
== END 2022-10-22 15:50 | disposition home or self-care (01) | DRG 305 ==
LOC: ER 13:56 → 2ND 14:19
PROVIDERS: Physician Assistant; Admitting Provider Internal Medicine Adolescent Medicine; Emergency Provider Student in an Organized Health Care Education/Training Program; PCP Internal Medicine; Visit Provider Internal Medicine Adolescent Medicine
DX: I16.1 Hypertensive emergency (principal); Z68.43 Body mass index [BMI] 50.0-59.9, adult; E66.9 Obesity, unspecified
CPT/HCPCS: 36415; 71045; 71275; 80053; 81001; 82088; 82164; 82384; 83735; 84244; 84443; 84484; 84585; 84702; 85025; 93005; 93306; 93976; 99291; Q9967

== ENCOUNTER → 2022-10-29 08:29 | Outpatient (CLI) | payer OTHER, SELFPAY ==
[2022-10-29 09:28] LABS: Basophils # 0.1 K/mm3 (0-0.2); Basophils % 0.9 % (0.1-2.0); Eosinophils % 0.1 % (0.1-12.0); Hematocrit 43.5 % (37.0-47.0); Hemoglobin 14.1 g/dL (12.2-16.2); Lymphocytes # 1.8 K/mm3 (0.7-4.5); Mean Corpuscular HGB Conc 32.4 g/dL (31.8-35.4); Mean Corpuscular Hemoglobin 27.1 pg (27.0-31.2); Mean Corpuscular Volume 83.5 fl (81-99); Mean Platelet Volume 8.5 fl (7.4-10.4); Monocytes # 0.3 K/mm3 (0.1-1.0); Monocytes % 4.7 % (1.7-9.3); Neutrophils # 4.4 K/mm3 (1.8-7.8); Neutrophils % 67.3 % (37.0-80.0); Platelet Count 306 K/mm3 (142-424); Red Blood Count 5.21 M/mm3 (4.20-5.40); Red Cell Distribution Width 14.7 % (11.5-17.5); White Blood Count 6.6 K/mm3 (4.8-10.8)
[2022-10-29 09:57] LABS: Alanine Aminotransferase 24 U/L (12-78); Albumin Level 4.4 g/dl (3.5-5.0); Alkaline Phosphatase 68 U/L (38-126); Anion Gap 13.4 mEq/L (5-15); Aspartate Amino Transferase 20 U/L (14-36); Bilirubin,Direct 0.1 mg/dl (0.0-0.4); Bilirubin,Indirect 0.2 mg/dL (0.0-0.9); Bilirubin,Total 0.3 mg/dl (0.2-1.3); Bilirubin,Unconjugated 0.2 mg/dL (0.0-1.1); Blood Urea Nitrogen 12 mg/dl (7-17); Calcium 9.4 mg/dl (8.4-10.2); Carbon Dioxide 27 mmol/L (22.0-30.0); Chloride 104 mmol/L (98-107); Chol/HDL Ratio 7.4 (1-3.5); Cholesterol 275 mg/dl (140-200); Estimated Glomerular Filt Rate 102 ml/min (>60); GFR (African American) 123 ML/MIN (>60); Glucose 95 mg/dl (74-100); HDL Cholesterol 37 mg/dl (40-60); Magnesium 1.7 mg/dl (1.6-2.3); Potassium 4.4 mmoL/L (3.5-5.1); Sodium 140 mmol/L (136-145); Total Protein,Serum 7.9 g/dl (6.3-8.2); Triglycerides 168 mg/dl (30-150); VLDL Cholesterol 34 mg/dL (0-40)
[2022-10-29 10:08] LABS: Direct LDL Cholesterol 167.66 mg/dL (100-129)
[2022-10-29 10:27] LABS: Thyroid Stimulating Hormone 1.29 uIU/mL (0.465-4.68)
--- NOTE | 2022-10-29 11:43 | NM_ITS ---
APPROVED REPORT Exam: Nuclear Stress Test Indication: high bp Patient Location: Outpatient MS Tech:ALINE Edmond RT(R)(N) Ht: 5 ft 6 in Wt: 342 lbs Bra Size: 40c BSA: 2.51 m2 BMI: 55.1 History: High BP Procedure: Pt heart rate was to high to be able to walk on treadmill. Jose G Mendiola called and talked to Yojana Mccarthy NP, in cardiology office, who recommended canceling the stress portion of the stress test. Pt was then instructed to start different medication. Cardiac Stress and Resting SPECT Images: Cardiac Stress and Resting SPECT images were obtained using technetium 99m Myoview mCi stress and 10.32 mCi at rest. Stress imaging could not be performed as the patient was tachycardic at rest. Evaluation of ischemia and gated imaging is therefore not available. Resting imaging demonstrates large sized, moderate perfusion defect in the anterior and anterolateral LV wall. Assessment of ischemia versus artifact cannot be made. Gated imaging not available. LVEF cannot be estimated. Conclusion: Stress imaging could not be performed as the patient was tachycardic at rest. Large sized, moderate perfusion defect in the anterior and anterolateral LV wall. Assessment of ischemia versus artifact cannot be made. Gated imaging not available. LVEF cannot be estimated. Electronically signed by : Betzaida Whitaker MD 12/06/2022 00:14:00
== END ==
PROVIDERS: Physician Assistant; PCP Internal Medicine; Visit Provider Internal Medicine
DX: I10 Essential (primary) hypertension (principal); I51.7 Cardiomegaly; E26.9 Hyperaldosteronism, unspecified; F32.A Depression, unspecified; F41.9 Anxiety disorder, unspecified; E66.01 Morbid (severe) obesity due to excess calories; Z68.43 Body mass index [BMI] 50.0-59.9, adult
CPT/HCPCS: 36415; 78451; 78452; 80048; 80061; 80076; 82088; 82533; 83735; 84244; 84439; 84443; 85025; A9502

== ENCOUNTER 2022-11-04 10:20 | Day surgery (SDC) | payer OTHER, SELFPAY ==
[2022-11-04] VITALS (11 sets, daily range): BP systolic 114–174; BP diastolic 69–102; PULSE 95–107; RESP 16–22; O2SAT 95–100; BMI 55.2
--- NOTE | 2022-11-04 07:10 | IR_ITS ---
APPROVED REPORT Patient Location: Outpatient Hand Edger: ALINE Calvin RT (R) PROCEDURES Bilateral selective renal angiography INDICATION Malignant hypertension, Renovascular hypertension Informed consent was obtained prior to the procedure. COMPLICATIONS NONE Estimated Blood Loss: LESS THAN 10 ML TECHNIQUE 1% lidocaine used to anesthetize the right femoral groin. The right femoral artery was accessed via the Seldinger technique. A 4 Nepali sheath was placed in the right femoral artery. The JR4 catheter was used to selectively intubate each renal artery. At the end of the diagnostic angiogram the patient was transferred to the postop holding area in stable condition for sheath removal. ANGIOGRAPHIC RESULTS Right renal artery singular normal Left renal artery singular normal IMPRESSION Normal renal arteries bilaterally PLAN 1. Continue work-up for secondary hypertension 2. Treatment of blood pressure 3. Recommend weight loss Electronically signed by : Modesto Bruce MD 11/04/2022 12:23:11
[2022-11-04 10:42] LABS: Basophils # 0.1 K/mm3 (0-0.2); Eosinophils % 0.4 % (0.1-12.0); Hematocrit 45.8 % (37.0-47.0); Hemoglobin 14.5 g/dL (12.2-16.2); Lymphocytes # 2.3 K/mm3 (0.7-4.5); Lymphocytes % 30.4 % (10-50); Mean Corpuscular HGB Conc 31.6 g/dL (31.8-35.4); Mean Corpuscular Hemoglobin 26.3 pg (27.0-31.2); Mean Corpuscular Volume 83.2 fl (81-99); Mean Platelet Volume 8.5 fl (7.4-10.4); Monocytes # 0.4 K/mm3 (0.1-1.0); Monocytes % 5.3 % (1.7-9.3); Neutrophils # 4.8 K/mm3 (1.8-7.8); Platelet Count 364 K/mm3 (142-424); Red Cell Distribution Width 14.8 % (11.5-17.5); White Blood Count 7.7 K/mm3 (4.8-10.8)
[2022-11-04 11:02] LABS: HCG Qualitative, Serum Negative (Negative)
[2022-11-04 11:06] LABS: Anion Gap 15.6 mEq/L (5-15); Blood Urea Nitrogen 21 mg/dl (7-17); Calcium 9.7 mg/dl (8.4-10.2); Carbon Dioxide 24 mmol/L (22.0-30.0); Chloride 102 mmol/L (98-107); Creatinine Clearance Estimated 101 mL/min (50-200); Estimated Glomerular Filt Rate 87 ml/min (>60); GFR (African American) 106 ML/MIN (>60); Glucose 104 mg/dl (74-100); Potassium 4.6 mmoL/L (3.5-5.1); Sodium 137 mmol/L (136-145)
== END 2022-11-04 14:52 | disposition home or self-care (01) ==
PROVIDERS: PCP Internal Medicine; Visit Provider Internal Medicine
DX: I15.0 Renovascular hypertension (principal); I10 Essential (primary) hypertension; I51.7 Cardiomegaly; F41.9 Anxiety disorder, unspecified; F32.A Depression, unspecified; Z79.899 Other long term (current) drug therapy
CPT/HCPCS: 36252; 36415; 80048; 84703; 85025; 99152; C1725; C1760; C1769; J1644; Q9967

== ENCOUNTER → 2022-11-10 09:29 | Outpatient (CLI) | payer OTHER, SELFPAY ==
[2022-11-10 09:34] LABS: Microscopic, Urine URINE MICROSCOPIC (MICROSCOPIC)
[2022-11-10 10:51] LABS: Appearance,Urine CLEAR (Clear); Bilirubin,Urine Negative (Negative); Blood, Urine Negative (Negative); Color,Urine YELLOW (Yellow); Glucose,Urine (UA) Negative (Negative); Ketones,Urine Negative (Negative); Leukocyte Esterase,Urine TRACE (Negative); Nitrate,Urine Negative (Negative); Protein,Urine Negative (Negative); Specific Gravity, Urine 1.015 (1.005-1.030); Urobilinogen,Urine 0.2 EU/dl (0.2)
[2022-11-10 11:10] LABS: Bacteria,Urine Trace /lpf; WBC,Urine Occasional #/hpf (0-3)
[2022-11-10 14:36] LABS: Anion Gap 15.7 mEq/L (5-15); Blood Urea Nitrogen 17 mg/dl (7-17); Calcium 9.6 mg/dl (8.4-10.2); Carbon Dioxide 23 mmol/L (22.0-30.0); Chloride 104 mmol/L (98-107); Estimated Glomerular Filt Rate 87 ml/min (>60); GFR (African American) 106 ML/MIN (>60); Glucose 109 mg/dl (74-100); Potassium 4.7 mmoL/L (3.5-5.1); Sodium 138 mmol/L (136-145)
== END ==
PROVIDERS: PCP Internal Medicine; Visit Provider Internal Medicine
DX: I15.0 Renovascular hypertension (principal)
CPT/HCPCS: 36415; 80048; 81001

== ENCOUNTER → 2022-11-21 13:47 | Outpatient (CLI) | payer OTHER, SELFPAY ==
[2022-11-21 13:16] LABS: Hemoglobin A1C 5.6 % (4.0-6.0)
== END ==
PROVIDERS: PCP Internal Medicine; Visit Provider Internal Medicine
DX: Z13.1 Encounter for screening for diabetes mellitus (principal)
CPT/HCPCS: 83036

== ENCOUNTER → 2022-11-27 11:00 | Outpatient (CLI) | payer OTHER, SELFPAY ==
[2022-11-27 17:52] LABS: Anion Gap 15.4 mEq/L (5-15); Blood Urea Nitrogen 21 mg/dl (7-17); Calcium 9.4 mg/dl (8.4-10.2); Carbon Dioxide 30 mmol/L (22.0-30.0); Chloride 100 mmol/L (98-107); Estimated Glomerular Filt Rate 76 ml/min (>60); GFR (African American) 92 ML/MIN (>60); Glucose 79 mg/dl (74-100); Potassium 4.4 mmoL/L (3.5-5.1); Sodium 141 mmol/L (136-145)
== END ==
PROVIDERS: PCP Internal Medicine; Visit Provider Internal Medicine
DX: E26.9 Hyperaldosteronism, unspecified (principal)
CPT/HCPCS: 80048

== ENCOUNTER → 2022-12-26 09:41 | Outpatient (CLI) | payer OTHER, SELFPAY ==
--- NOTE | 2022-12-26 09:41 | MR_ITS ---
APPROVED REPORT Jig Inspector: CLINICAL INDICATION Increased LV wall thickness, evaluate for HCM TECHNIQUE Image Acquisition: Cardiac magnetic resonance (CMR) was performed on Siemens Espree MRI 1.5T scanner. Software platform sequences were performed using the Siemens [employer] MR B19 platform. A set of three-plane, low-resolution, large [id number] localizers were initially acquired. Then axial, coronal, sagittal TrueFISP, as well as axial HASTE images, were obtained. These were followed by gated TrueFISP breathold cinematic sequences obtained in the short axis with 8 mm slices and 2 mm gaps, 2-chamber (vertical long axis), 3-chamber, 4-chamber (horizontal long axis). A bolus of contrast was injected intravenously with first-pass sequences obtained in the short axis and four-chamber planes. After approximately 10 minutes, a TI antique clocks repairer sequence was performed to determine the optimal TI time. Using the optimized TI time, delayed contrast enhancement segmented inversion???recovery TurboFLASH sequences were obtained in the short axis, 2-chamber, 3-chamber, and 4-chamber projections. 2D-velocity phase mapping was performed. Functional parameters were calculated by offline analysis on an independent workstation ([employer], [employer]). Contrast: ProHance??? (Gadoteridol) FINDINGS MORPHOLOGY AND FUNCTION Left ventricle: The left ventricle is normal in size. The indexed left ventricular end-diastolic volume (LVEDVi) is 93 ml/m2 (reference range 57-105 ml/m2 in males, 56-96 ml/m2 in females). Normal left ventricular systolic function is present. There is increased left ventricular wall thickness (maximum thickness 12.4 mm). There are no regional wall motion abnormalities noted. LVEF is calculated at 59% (reference range 57-77%). Right ventricle: The right ventricle is normal in size. The indexed right ventricular end-diastolic volume (RVEDVi) is 98 ml/m2 (reference range 61-121 ml/m2 in males, 48-112 ml/m2 in females). Normal right ventricular systolic function is present. RVEF is calculated at 51% (reference range 52-72% in males, 51-71% in females). Atria: The left atrium is normal in size. The maximum indexed left atrial volume is 38 ml/m2 (reference range 26-52 ml/m2 in males, 27-53 ml/m2 in females). The right atrium is normal in size. The maximum indexed right atrial volume is 29 ml/m2 (reference range 18-90 ml/m2). Aorta: The diameter of the aortic annulus is normal, measuring 22 mm (coronal view reference range 21-30 mm in males, 19-27 mm in females). The diameter of the aortic sinus is normal, measuring 33 mm (coronal view reference range 25-42 mm in males, 24-36 mm in females). The diameter of the sinotubular junction is normal, measuring 28 mm (coronal view reference range 18-32 mm in males, 18-28 mm in females). The diameters of the ascending and descending thoracic aorta are normal. Main pulmonary artery: The main pulmonary artery diameter is normal. Pericardium: The pericardial thickness is normal. The pericardial thickness measures 2.5 cm (normal < 4.0 cm). There is no pericardial effusion. VALVES The valvular morphologies in the visualized sequences appear normal. There is no significant valvular stenosis or regurgitation of the mitral, aortic, tricuspid, or pulmonic valve noted visually. Systolic anterior motion of the mitral valve is not visualized. TISSUE CHARACTERIZATION Resting Perfusion: Normal myocardial blood flow at rest. No evidence of resting hypoperfusion. Myocardial Fibrosis and/or edema: Normal gadolinium kinetics are present. No evidence of late gadolinium enhancement is noted, consistent with absence of myocardial scarring, infarction, or necrosis. T2-weighted imaging demonstrates no evidence of myocar
== END ==
PROVIDERS: PCP Internal Medicine; Visit Provider Internal Medicine
DX: E66.01 Morbid (severe) obesity due to excess calories (principal); I10 Essential (primary) hypertension; I15.0 Renovascular hypertension; Z68.43 Body mass index [BMI] 50.0-59.9, adult
CPT/HCPCS: 75561; A9576

== ENCOUNTER → 2023-01-23 10:10 | Outpatient (CLI) | payer OTHER, SELFPAY ==
[2023-01-23 09:55] LABS: Adenovirus,PCR Not Detected (NotDetected); Coronavirus 19, PCR Not Detected (NotDetected); Coronavirus 229E Not Detected (NotDetected); Coronavirus NL63 Not Detected (NotDetected); Coronavirus OC43 Not Detected (NotDetected); Coronovirus HKU1,PCR Not Detected (NotDetected); Human Metapneumovirus Not Detected (NotDetected); Influenza A, PCR Not Detected (NotDetected); Influenza AH1, 2009 Not Detected (NotDetected); Influenza AH1, PCR Not Detected (NotDetected); Influenza AH3,PCR Not Detected (NotDetected); Influenza B, PCR Not Detected (NotDetected); Parainfluenza 1, PCR Not Detected (NotDetected); Parainfluenza 2, PCR Not Detected (NotDetected); Parainfluenza 3, PCR Not Detected (NotDetected); Parainfluenza 4, PCR Not Detected (NotDetected); Respiratory Syncytial Virus Not Detected (NotDetected); Rhinovirus/Enterovirus Not Detected (NotDetected)
== END ==
PROVIDERS: PCP Internal Medicine; Visit Provider Internal Medicine
DX: R05.9 Cough, unspecified (principal)
CPT/HCPCS: 87632; 87635

== ENCOUNTER 2024-01-07 13:10 | Outpatient (CLI) | payer OTHER, SELFPAY ==
[2024-01-07 12:52] LABS: Adenovirus,PCR Not Detected (NotDetected); Bordetella Pertussis Not Detected (NotDetected); Chlamydophila Pneumoniae, PCR Not Detected (NotDetected); Coronavirus 19, PCR Not Detected (NotDetected); Coronavirus 229E Not Detected (NotDetected); Coronavirus NL63 Not Detected (NotDetected); Coronavirus OC43 Not Detected (NotDetected); Coronovirus HKU1,PCR Not Detected (NotDetected); Human Metapneumovirus Not Detected (NotDetected); Influenza A, PCR Not Detected (NotDetected); Influenza AH1, 2009 Not Detected (NotDetected); Influenza AH1, PCR Not Detected (NotDetected); Influenza AH3,PCR Not Detected (NotDetected); Influenza B, PCR Not Detected (NotDetected); Mycoplasma Pneumoniae, PCR Not Detected (NotDetected); Parainfluenza 1, PCR Not Detected (NotDetected); Parainfluenza 2, PCR Not Detected (NotDetected); Parainfluenza 3, PCR Not Detected (NotDetected); Parainfluenza 4, PCR Not Detected (NotDetected); Respiratory Syncytial Virus Not Detected (NotDetected); Rhinovirus/Enterovirus Not Detected (NotDetected)
== END 2024-01-07 23:59 | disposition home or self-care (01) ==
LOC: LAB.DROPOF 13:10
PROVIDERS: PCP Internal Medicine; Visit Provider Internal Medicine
DX: R53.83 Other fatigue (principal)
CPT/HCPCS: 87633

== ENCOUNTER 2024-03-31 07:16 | Outpatient (CLI) | payer OTHER, SELFPAY ==
[2024-03-31 07:43] LABS: Basophils # 0.1 K/mm3 (0-0.2); Basophils % 0.7 % (0.1-2.0); Mean Corpuscular Volume 82.5 fl (81-99); Mean Platelet Volume 10.2 fl (7.4-10.4); Platelet Count 319 K/mm3 (142-424); Red Cell Distribution Width 13.6 % (11.5-17.5); White Blood Count 6.8 K/mm3 (4.8-10.8)
[2024-03-31 07:46] LABS: Eosinophils % 0.1 % (0.1-12.0); Hemoglobin 13.5 g/dL (12.2-16.2); Lymphocytes # 1.5 K/mm3 (0.7-4.5); Lymphocytes % 22.7 % (10-50); Mean Corpuscular HGB Conc 33.8 g/dL (31.8-35.4); Mean Corpuscular Hemoglobin 27.8 pg (27.0-31.2); Monocytes # 0.4 K/mm3 (0.1-1.0); Monocytes % 6.5 % (1.7-9.3); Neutrophils # 4.7 K/mm3 (1.8-7.8); Neutrophils % 69.9 % (37.0-80.0); Red Blood Count 4.85 M/mm3 (4.20-5.40)
[2024-03-31 08:38] LABS: Alanine Aminotransferase 50 U/L (12-78); Albumin Level 4.7 g/dl (3.5-5.0); Alkaline Phosphatase 64 U/L (38-126); Anion Gap 16.1 mEq/L (5-15); Aspartate Amino Transferase 40 U/L (14-36); Bilirubin,Direct 0.2 mg/dl (0.0-0.4); Bilirubin,Indirect 0.3 mg/dL (0.0-0.9); Bilirubin,Total 0.5 mg/dl (0.2-1.3); Bilirubin,Unconjugated 0.3 mg/dL (0.0-1.1); Blood Urea Nitrogen 11 mg/dl (7-17); Calcium 9.5 mg/dl (8.4-10.2); Carbon Dioxide 25 mmol/L (22.0-30.0); Chloride 105 mmol/L (98-107); Chol/HDL Ratio 9.2 (1-3.5); Cholesterol 276 mg/dl (140-200); Estimated Glomerular Filt Rate 101 ml/min (>60); GFR (African American) 122 ML/MIN (>60); Glucose 107 mg/dl (74-100); HDL Cholesterol 30 mg/dl (40-60); Magnesium 1.9 mg/dl (1.6-2.3); Potassium 4.1 mmoL/L (3.5-5.1); Sodium 142 mmol/L (136-145); Total Protein,Serum 7.5 g/dl (6.3-8.2); Triglycerides 246 mg/dl (30-150); VLDL Cholesterol 49 mg/dL (0-40)
[2024-03-31 08:50] LABS: Direct LDL Cholesterol 173.04 mg/dL (100-129)
[2024-03-31 08:55] LABS: Free T4 (Free Thyroxine) 0.95 ng/dl (0.78-2.19)
[2024-03-31 08:56] LABS: 25-OH Vitamin D, Total 16.7 ng/mL (30-100)
[2024-03-31 09:09] LABS: Thyroid Stimulating Hormone 1.37 uIU/mL (0.465-4.68)
[2024-03-31 09:28] LABS: Vitamin B12 391 pg/mL (239-931)
== END 2024-03-31 23:59 | disposition home or self-care (01) ==
LOC: LAB 07:17
PROVIDERS: PCP Internal Medicine; Visit Provider Nurse Practitioner Family
DX: E26.9 Hyperaldosteronism, unspecified (principal); I10 Essential (primary) hypertension; I15.0 Renovascular hypertension
CPT/HCPCS: 36415; 80048; 80061; 80076; 82306; 82607; 83735; 84439; 84443; 85025

== ENCOUNTER 2024-07-05 12:09 | Outpatient (CLI) | payer OTHER, SELFPAY ==
[2024-07-05 12:25] LABS: Basophils # 0.1 K/mm3 (0-0.2); Basophils % 0.5 % (0.1-2.0); Eosinophils % 0.1 % (0.1-12.0); Hematocrit 40.1 % (37.0-47.0); Hemoglobin 13.1 g/dL (12.2-16.2); Immature Granulocytes # 0.02 10^3uL; Immature Granulocytes % 0.2 %; Lymphocytes # 1.5 K/mm3 (0.7-4.5); Lymphocytes % 15.2 % (10-50); Mean Corpuscular HGB Conc 32.7 g/dL (31.8-35.4); Mean Corpuscular Hemoglobin 27.5 pg (27.0-31.2); Mean Corpuscular Volume 84.2 fl (81-99); Mean Platelet Volume 9.9 fl (7.4-10.4); Monocytes # 0.5 K/mm3 (0.1-1.0); Monocytes % 5.1 % (1.7-9.3); Neutrophils # 7.8 K/mm3 (1.8-7.8); Neutrophils % 78.9 % (37.0-80.0); Nucleated Red Blood Cells # 0 10^3/uL; Nucleated Red Blood Cells % 0 %; Platelet Count 329 K/mm3 (142-424); Red Blood Count 4.76 M/mm3 (4.20-5.40); Red Cell Distribution Width-SD 39.8 fL; White Blood Count 9.8 K/mm3 (4.8-10.8)
[2024-07-05 12:59] LABS: Alanine Aminotransferase 42 U/L (12-78); Albumin Level 4.6 g/dl (3.5-5.0); Alkaline Phosphatase 63 U/L (38-126); Anion Gap 8.1 mEq/L (5-15); Aspartate Amino Transferase 27 U/L (14-36); Bilirubin,Direct 0.1 mg/dl (0.0-0.4); Bilirubin,Indirect 0.3 mg/dL (0.0-0.9); Bilirubin,Total 0.4 mg/dl (0.2-1.3); Bilirubin,Unconjugated 0.3 mg/dL (0.0-1.1); Blood Urea Nitrogen 10 mg/dl (7-17); Calcium 9.1 mg/dl (8.4-10.2); Carbon Dioxide 28 mmol/L (22.0-30.0); Chloride 105 mmol/L (98-107); Chol/HDL Ratio 7.6 (1-3.5); Cholesterol 259 mg/dl (140-200); Estimated Glomerular Filt Rate 101 ml/min (>60); GFR (African American) 122 ML/MIN (>60); Glucose 94 mg/dl (74-100); HDL Cholesterol 34 mg/dl (40-60); Magnesium 1.9 mg/dl (1.6-2.3); Potassium 4.1 mmoL/L (3.5-5.1); Sodium 137 mmol/L (136-145); Total Protein,Serum 7.3 g/dl (6.3-8.2); Triglycerides 232 mg/dl (30-150); VLDL Cholesterol 46 mg/dL (0-40)
[2024-07-05 13:10] LABS: Direct LDL Cholesterol 172.17 mg/dL (100-129)
[2024-07-05 13:14] LABS: Free T4 (Free Thyroxine) 0.98 ng/dl (0.78-2.19)
[2024-07-05 13:29] LABS: Thyroid Stimulating Hormone 1.64 uIU/mL (0.465-4.68)
== END 2024-07-05 23:59 | disposition home or self-care (01) ==
LOC: LAB 12:09
PROVIDERS: PCP Internal Medicine; Visit Provider Nurse Practitioner Family
DX: I15.0 Renovascular hypertension (principal)
CPT/HCPCS: 36415; 80048; 80061; 80076; 82088; 83735; 84244; 84439; 84443; 85025

== ENCOUNTER → 2024-08-11 13:22 | Outpatient (CLI) | payer OTHER, SELFPAY | LOC: SL 13:22 | PROVIDERS: PCP Nurse Practitioner Family; Visit Provider Nurse Practitioner Family | DX: G47.33 Obstructive sleep apnea (adult) (pediatric) (principal); G47.36 Sleep related hypoventilation in conditions classified elsewhere; I15.0 Renovascular hypertension; R06.83 Snoring | CPT/HCPCS: 95806 ==